=== PATIENT | male | born 1960 | race Caucasian/White ===

== ENCOUNTER 2025-07-21 23:01 | Emergency (ER) | payer OTHER ==
[2025-07-22 00:39] LABS: #Basophils 0.04 10x3/uL (0.0-0.2); #Eosinophils 0.15 10x3/uL (0.0-0.5); #Monocytes 0.31 10x3/uL (0.0-1.1); #Neutrophils 2.94 10x3/uL (1.5-8.4); %Basophils 0.9 % (0.0-2.0); %Eosinophils 3.5 % (0.0-6.0); %Lymphocytes 20.0 % (18.0-47.0); %Monocytes 7.2 % (0.0-10.0); %Neutrophils 68.2 % (40.0-75.0); Hematocrit 36.2 % (38.8-50.0); Hemoglobin 12.2 g/dL (13.5-17.5); Mean Corpuscular Hemoglobin 34.6 pg (27.0-33.0); Mean Corpuscular Volume 102.5 fL (81.2-95.1); Platelet Count 38 10x3/uL (150-450); Red Blood Cell (RBC) Count 3.53 10x6/uL (4.32-5.72); White Blood Cell (WBC) Count 4.31 10x3/uL (3.5-10.5)
[2025-07-22 00:48] LABS: ALT (SGPT) 19 U/L (Less than 45); AST (SGOT) 36 U/L (11-34); Albumin 2.3 g/dL (3.1-4.5); Alkaline Phosphatase 116 U/L (40-110); Anion Gap 8 mmol/L (10-20); BUN (Urea Nitrogen) 9 mg/dL (8.4-25.7); Bilirubin, Total 3.3 mg/dL (0.3-1.2); Calc. Creatinine Clearance 0 mL/min (70-130); Calcium 8.0 mg/dL (7.8-10.44); Carbon Dioxide 24 mmol/L (23-31); Chloride 115 mmol/L (98-107); Globulin 3.3 g/dL (2.4-3.5); Glucose 103 mg/dL (80-115); INR-International Normal Ratio 1.6; PTT 29.6 sec (22.0-33.0); Potassium 4.2 mmol/L (3.5-5.1); Prothrombin Time 16.6 sec (9.5-12.1); Sodium 143 mmol/L (136-145)
[2025-07-22 00:59] LABS: Anisocytosis SLIGHT = 6-15 cells (100X) (0-5/hpf); MDiff Complete? YES; Macrocytosis SLIGHT = 6-15 cells (100X) (0-5/hpf); Microcytosis SLIGHT = 6-15 cells (100X) (0-5/hpf); Platelet Adequacy Comment Appears Decreased
[2025-07-22] MEDS ORDERED: Lactulose 20 GM (30 mL) UDCUP ONE (02:04)
== END 2025-07-22 03:21 | disposition short-term general hospital (02) ==
LOC: CSHERS 23:01
DX: K76.82 Hepatic encephalopathy (principal); D69.6 Thrombocytopenia, unspecified; I10 Essential (primary) hypertension
CPT/HCPCS: 36415; 70450; 71045; 72125; 80053; 82140; 85025; 85610; 85730; 93005

== ENCOUNTER 2025-08-25 19:35 | Emergency (ER) | payer OTHER ==
[2025-08-25 20:35] LABS: Glucose, Urine (Dipstick) Normal (Negative); Leukocyte 25 (Negative); Protein, Urine (Dipstick) 15 mg/dl (Neg-Trace); Specific Gravity, Urine 1.020 (1.005-1.030)
[2025-08-25 20:59] LABS: Bacteria/HPF 3+ HPF (None Seen); CAUTI Indications for Culture Pelvic or flank pain; RBC/HPF None Seen HPF (0-3); Urine Culture Reflex No No; WBC/HPF 0-3 HPF (0-3)
[2025-08-25] MEDS ORDERED: cefTRIAXone (ROCEPHIN) 1 GM VIAL ONE (21:24)
== END 2025-08-25 23:11 ==
LOC: CSHERS 19:35
DX: R18.8 Other ascites (principal); K74.60 Unspecified cirrhosis of liver; E66.01 Morbid (severe) obesity due to excess calories; N39.0 Urinary tract infection, site not specified; I10 Essential (primary) hypertension; Z79.899 Other long term (current) drug therapy
CPT/HCPCS: 71250; 74177; 81001; 96372; 99284; J0696